=== PATIENT | male | born 1985 | race Two or more races ===

== ENCOUNTER 2025-06-02 17:10 | Emergency (ER) | payer MEDICAID, SELFPAY ==
[2025-06-02 17:13] VITALS: BMI 34.4
[2025-06-02 17:16] VITALS: BP 109/68; PULSE 109; RESP 24; O2SAT 98
--- NOTE | 2025-06-02 17:16 | PD.EDANIML ---
ED Animal Bite RME/HPI General Chief Complaint: Animal Bite Stated Complaint: DOG BITE R LOWER LEG Time Seen by Provider: 06/02/25 17:16 Arrival date/time: 06/02/25 17:10 RME / HPI RME / HPI narrative: 40 year old male presents to the ED for evaluation of dog bite to the right lower extremity and left ankle. Patient states he was walking on the sidewalk when two large Maltese [employer]owell's attacked him. No other injuries reported. In the ED, patient complains of pain to the dog bites and feeling short of breath and light headed. No other injuries reported. Patient admits to using meth last night. Related Data Previous Rx's ?Medication ?Instructions ?Recorded amoxicillin 500 mg-potassium 1 tab PO TID #21 tabs 06/02/25 clavulanate 125 mg tablet Allergies Allergy/AdvReac Type Severity Reaction Status Date / Time acetaminophen (From Tylenol) Allergy Verified 06/02/25 17:10 ibuprofen Allergy Verified 06/02/25 17:10 nortriptyline Allergy Verified 06/02/25 17:10 Review of Systems Review of Systems Systems Reviewed: All systems reviewed, normal except as documented Past Medical History Social History SMOKING STATUS: Current every day smoker ED Exam Narrative Physical exam: GENERAL APPEARANCE: alert and oriented x 4, well-developed, well-nourished, diaphoretic HEENT: Normocephalic, atraumatic; pupils equal, round, reactive to light; EOMI; mucous membranes pink, moist; oropharynx clear NECK: Supple LUNGS: CTABL; no wheezes, no rales, no rhonchi HEART: Regular rate, regular rhythm; normal S1, S2; no murmurs ABDOMEN: non distended; normal BS; soft, no tenderness, no guarding, no rebound; no masses, no organomegaly, no hernia EXTREMITIES: Two deep 7cm laceration to the back of the right calf, no muscle exposure, 5cm laceration to the back of the left ankle that is superficial; no edema NEUROLOGIC: awake; alert and oriented x4; cranial nerves II-XII grossly intact PSYCHIATRIC: appropriate mood and affect SKIN: warm, diaphoretic, normal color; no rashes Course Course Course Narrative: 1800: Patient signed out to Dr. Smith pending imaging and final disposition. Quality Measures none Orders Category Date Time Status XR ankle LT 2V Stat Exams 06/02/25 17:22 Completed XR tibia fibula RT 2V Stat Exams 06/02/25 17:17 Completed Amoxicillin/Pot Clav [Augmentin] Med 06/02/25 18:01 Discontinued 500 mg PO X1 ONE Amoxicillin/Pot Clav [Augmentin] Med 06/03/25 08:16 Discontinued 500 mg PO X1 ONE LORazepam [Ativan] Med 06/03/25 08:25 Discontinued 2 mg PO X1 ONE Lidocaine 1% 20 ml [Xylocaine 1% 20 ML] Med 06/02/25 17:22 Discontinued 20 ml INFL X1 ONE TET,DIP/PERT AC (Adult)-Tdap [Boostrix Adult (Tdap) Med 06/03/25 10:36 Discontinued Vacc] 0.5 ml IMI .ONCE ONE Vital Signs Vital signs: Vital Signs Pulse Rate 109 H 06/02/25 17:16 Respiratory Rate 24 H 06/02/25 17:16 Blood Pressure 109/68 06/02/25 17:16 Pulse Oximetry (%) 98 06/02/25 17:16 Oxygen Delivery Method Room Air 06/02/25 17:16 Pulse ox is 98% on room air which is adequate. Animal Bite MDM Narrative MDM Narrative:: Amie Richardson am scribing for and in the presence of Dr. Calvin. Patient data External records reviewed:: [facility] previous records Clinical information provided by:: patient Social determinants that could affect healthcare access:: substance use (meth, last used yesterday evening) Patient has the following chronic illnesses:: None reported How is presenting disease/condition affected by chronic disease/condition?: no chronic disease Evaluation data The following diagnostics were reviewed and interpreted by me:: radiology exam(s) Lab and/or radiology exams considered but not ordered:: None Interpretation Summary: Official xray reports pending during sign out. Medications / Prescriptions Medications or Prescriptions considered but not ordered:: None Medication administrations:: Medication Administration History Discontinued Medications Amoxicillin/Clavulanate Potassium (Amoxicillin/Pot Clav 500 Mg Tablet) 500 mg PO X1 ONE Stop: 06/02/25 18:02 Last Admin: 06/02/25 18:10 Dose: 500 mg Documented By: SCOTT Amoxicillin/Clavulanate Potassium (Amoxicillin/Pot Clav 500 Mg Tablet) 500 mg PO X1 ONE Stop: 06/03/25 08:17 Last Admin: 06/03/25 08:38 Dose: 500 mg Documented By: ALEM Diphtheria/Tetanus/Acell Pertussis (Diphth,Pertuss(Acell),Tet Vac 0.5 Ml Syr- Adult) 0.5 ml IMi .ONCE ONE Stop: 06/03/25 10:37 Last Admin: 06/03/25 11:12 Dose: Not Given Documented By: HENRY Non-Admin Reason: Patient Refused Lidocaine HCl (Lidocaine Hcl 1% 20 Ml Vial) 20 ml INFL X1 ONE Stop: 06/02/25 17:23 Last Admin: 06/02/25 17:33 Dose: 20 ml Documented By: SCOTT Comments: administered by Dr. calvin Lorazepam (Lorazepam 0.5 Mg Tablet) 2 mg PO X1 ONE Stop: 06/03/25 08:26 Last Admin: 06/03/25 08:38 Dose: 2 mg Documented By: ALEM See above Consultations Consultation(s) initiated? (list below): No Diagnosis Most likely diagnosis given after review of the tests above:: Animal bite, right and left lower extremities Admission Indicated Admission indicated?: not indicated Explain why admission is indicated or not indicated:: 1800: Patient signed out to Dr. Smith pending imaging and final disposition. Admission Request Was there a request for admission?: No Disposition Plan Disposition Plan: other (specify) (Signed out to Dr. Smith ) Discharge Plan Plan Patient Disposition: HOME (Self Care) Prescriptions/Referrals Prescriptions/Med Rec: New amoxicillin-pot clavulanate 500-125 mg tablet 1 tab PO TID Qty: 21 0RF Referrals: Nikolai Mcfadden MD [Primary Care Provider, Family Practice] - In 1 week Problem List Clinical Impression: Dog bite Patient/Caregiver Discharge Instructions Education Materials: ED Dog Bite, ED Dressing Change Additional Instructions: Dog bite wounds can easily become infected, therefore your wounds have been loosely closed to allow for any infection to drain. Your wound healing may also be affected by your refusal for cleaning and sutures for many hours after the initial wound. Antibiotics have been sent to your pharmacy. Take as directed. Follow up for a wound check in 1-2 days with your doctor, or you may return to the emergency department for a wound check. Change your dressing daily as demonstrated by the nurse. Recommend a wet to dry dressing for the next 2 days. You received a tetanus booster vaccine (Tdap) today. Print Language: Maltese Stand Alone Forms: Sindi Award Info., Patient Portal Info Letter
--- NOTE | 2025-06-02 17:17 | XR_ITS ---
Examination: Tibia-Fibula, right, 2 views Technique: Tibia-fibula AP lateral 2 views Date and time of exam: June 02, 2025, 1742 hours INDICATIONS: Dog bite on the lower leg today, pain FINDINGS: Apparent bandaging material over the medial calf No fracture There are tiny opacities which may be on the skin at the calf region, clinical correlation advised IMPRESSION: No fracture Tiny opacities in the soft tissue of the calf which may be on the skin, clinical correlation advised
--- NOTE | 2025-06-02 17:22 | XR_ITS ---
EXAMINATION: Ankle, left 2 views. Technique: AP lateral left ankle 2 views Date and time: June 02, 2025, 1742 hours INDICATIONS: Dog bite today to the ankle, ankle pain. FINDINGS: No fracture or dislocation. No opaque foreign bodies IMPRESSION: No opaque foreign bodies
--- NOTE | 2025-06-02 17:30 | PC.NURSE ---
Patient arrived to ED after he was bitten on the legs. He presented with laceration to right posterior calf and left ankle, Dr. Rodriguez at bedside assessing wound, Dressing was applied to area. Patient is yelling and cursing that he is going to bleed out and . Nurses tried to calm patient down by reassuring that he is getting treatment and he needs to stay calm. Very difficult to obtain any information from patient due to his lack of cooperation. At this time dressing was tended and Dr. Rodriguez ordered some antibiotics. Pt continues to be very agitated and angry.
[2025-06-02] MEDS: LIDOCAINE HCL 1% 20 ML VIAL INFL (17:33)
[2025-06-02] MEDS: AMOXICILLIN/POT CLAV 500 MG TABLET PO (18:10)
--- NOTE | 2025-06-02 18:19 | PD.EDADDENDU ---
Emergency Room Addendum <Susana Mcfadden - Last Filed: 06/02/25 18:35> Addendum Narrative: 1800: Care assumed from Dr. Rodriguez, the previous shift emergency physician. Past medical, surgical, social and family history reviewed. Vitals and home medications reviewed. Results and treatment plan discussed. I will assume the care of the patient at this time and will follow the patient, pending left ankle and left tibia fibula x-rays. Please refer to the emergency department record for history and examination from initial visit. RADIOLOGY RESULTS: [facility] Signed Patient: BLAKE OTTO [facility]. Record#: [id number] Birthdate: 1985 Age/Sex: 40 / M Location: [facility] Attending Dr: Ordering Physician: Carolee Rodriguez MD Date of Service: 06/02/25 Procedure(s): XR ankle LT 2V Accession Number(s): [id number] cc: Nikolai Mcfadden MD; Alvaro Corrigan MD; Carolee Rodriguez MD~ EXAMINATION: Ankle, left 2 views. Technique: AP lateral left ankle 2 views Date and time: June 02, 2025, 1742 hours INDICATIONS: Dog bite today to the ankle, ankle pain. FINDINGS: No fracture or dislocation. No opaque foreign bodies IMPRESSION: No opaque foreign bodies Dictated By: Alvaro Corrigan MD Signed By: <Electronically signed by Alvaro Corrigan MD in OV> 06/02/25 1828 [facility] Signed Patient: BLAKE OTTO [facility]. Record#: [id number] Birthdate: 1985 Age/Sex: 40 / M Location: [facility] Attending Dr: Ordering Physician: Carolee Rodriguez MD Date of Service: 06/02/25 Procedure(s): XR tibia fibula RT 2V Accession Number(s): [id number] cc: Nikolai Mcfadden MD; Alvaro Corrigan MD; Carolee Rodriguez MD~ Examination: Tibia-Fibula, right, 2 views Technique: Tibia-fibula AP lateral 2 views Date and time of exam: June 02, 2025, 1742 hours INDICATIONS: Dog bite on the lower leg today, pain FINDINGS: Apparent bandaging material over the medial calf No fracture There are tiny opacities which may be on the skin at the calf region, clinical correlation advised IMPRESSION: No fracture Tiny opacities in the soft tissue of the calf which may be on the skin, clinical correlation advised Dictated By: Alvaro Corrigan MD Signed By: <Electronically signed by Alvaro Corrigan MD in OV> 06/02/25 1827 <Rich Smith, - Last Filed: 06/03/25 04:49> Addendum Narrative: 1800: Care assumed from Dr. Rodriguez, the previous shift emergency physician. Past medical, surgical, social and family history reviewed. Vitals and home medications reviewed. Results and treatment plan discussed. I will assume the care of the patient at this time and will follow the patient, pending left ankle and left tibia fibula x-rays. Please refer to the emergency department record for history and examination from initial visit. RADIOLOGY RESULTS: [facility] Signed Patient: BLAKE OTTO [facility]. Record#: [id number] Birthdate: 1985 Age/Sex: 40 / M Location: [facility] Attending Dr: Ordering Physician: Carolee Rodriguez MD Date of Service: 06/02/25 Procedure(s): XR ankle LT 2V Accession Number(s): [id number] cc: Nikolai Mcfadden MD; Alvaro Corrigan MD; Carolee Rodriguez MD~ EXAMINATION: Ankle, left 2 views. Technique: AP lateral left ankle 2 views Date and time: June 02, 2025, 1741 hours INDICATIONS: Dog bite today to the ankle, ankle pain. FINDINGS: No fracture or dislocation. No opaque foreign bodies IMPRESSION: No opaque foreign bodies Dictated By: Alvaro Corrigan MD Signed By: <Electronically signed by Alvaro Corrigan MD in OV> 06/02/251827 [facility] Signed Patient: BLAKE OTTO. Record#: [id number] Birthdate: 1985 Age/Sex: 40 / M Location: [facility] Attending Dr: Ordering Physician: Carolee Rodriguez MD Date of Service: 06/02/25 Procedure(s): XR tibia fibula RT 2V Accession Number(s): [id number] cc: Nikolai Mcfadden MD; Alvaro Corrigan MD; Carolee Rodriguez MD~ Examination: Tibia-Fibula, right, 2 views Technique: Tibia-fibula AP lateral 2 views Date and time of exam: June 02, 2025, 1742 hours INDICATIONS: Dog bite on the lower leg today, pain FINDINGS: Apparent bandaging material over the medial calf No fracture There are tiny opacities which may be on the skin at the calf region, clinical correlation advised IMPRESSION: No fracture Tiny opacities in the soft tissue of the calf which may be on the skin, clinical correlation advised Dictated By: Alvaro Corrigan MD Signed By: <Electronically signed by Alvaro Corrigan MD in OV> 06/02/251826 Patient was very combative and not allowing me to repair the lacerations overnight. He stated that he needed to sleep and possibly he would allow the lacerations to be repaired in the morning. This case will be given back to the physician who originally saw the patient when she comes in this morning, Dr. Larry.
[2025-06-02 21:42] VITALS: PULSE 88; RESP 17; TEMP 36.7; O2SAT 97
[2025-06-03 06:17] VITALS: BP 151/77; PULSE 78; RESP 18; TEMP 36.9; O2SAT 99
[2025-06-03] MEDS: AMOXICILLIN/POT CLAV 500 MG TABLET PO (08:38)
[2025-06-03 08:42] VITALS: BP 129/83; PULSE 73; RESP 16; TEMP 36.7; O2SAT 96
--- NOTE | 2025-06-03 10:18 | PD.EDADDENDU ---
Emergency Room Addendum Addendum Narrative: 0600: Care assumed from Dr. Smith, the previous shift emergency physician. Past medical, surgical, social and family history reviewed. Vitals and home medications reviewed. I will assume the care of the patient at this time, pending laceration repair and final disposition. Please refer to the emergency department record for history and examination from initial visit.?The following addendum documentation note is intended to reflect any pending information, findings, or radiology results not included in the patient?s initial chart. Patient evidently had refused to have the lacerations repaired last night. Patient was in agreement this morning, about 18 hours later. The lacerations were difficult to close and the patient was advised the healing may be affected due initial refusal for cleaning and closure last night. Also made aware that with any dog bites, the lacerations would need to remain left open to minimize risk of infection. A mattress suture was placed in each laceration in addition to two interrupted sutures on each laceration to loosely approximate. The laceration on the left ankle was not closed and applied wet to dry dressing to all lacerations. ED Procedures Laceration Laceration 1: Site: lower extremity Side (If applicable): right Size (cm): 7 Description: linear Depth: simple, single layer (fat exposure, no muscle exposure) Local Anesthetic: lidocaine 1% Amount of anesthesia used (mL): 10 Pre-repair: wound explored and irrigated extensively Skin layer closed with: other (Ethilon ) Size (cm): 3-0 Number of sutures: 3 Technique: simple, interrupted (x2) and horizontal mattress (x1) Laceration 2: Site: lower extremity Side (If applicable): right Size (cm): 7 Description: linear Depth: simple, single layer (exposing fat, no muscle exposed ) Local Anesthetic: lidocaine 1% Amount of anesthesia used (mL): 10 Pre-repair: wound explored and irrigated extensively Skin layer closed with: other (ethilon ) Size (cm): 3-0 Number of sutures: 3 Technique: simple, interrupted (x2) and horizontal mattress (x1)
[2025-06-03 11:13] VITALS: BP 127/81; PULSE 70; RESP 18; TEMP 36.6; O2SAT 97
== END 2025-06-03 11:13 | disposition home or self-care (01) ==
PROVIDERS: Emergency Provider Emergency Medicine; PCP Family Medicine
DX: S81.851A Open bite, right lower leg, initial encounter (principal); W54.0XXA Bitten by dog, initial encounter; Y93.01 Activity, walking, marching and hiking
CPT/HCPCS: 12002; 73590; 73600; 99283; J3490; A9270